=== PATIENT | male | born 1985 | race African-American/Black ===

== ENCOUNTER 2016-09-04 14:45 | Emergency (ER) | payer SELFPAY ==
[~2016-09-04] VITALS: Ht 185.4 cm; Wt 75.0 kg
[~2016-09-04 14:45] MED LIST: CLOTCRE17 TOP; METH750T2 PO; NAPR500 PO
[2016-09-04 14:46] VITALS: BP 182/109; PULSE 87; RESP 14; TEMP 98.4; O2SAT 97
--- NOTE | 2016-09-04 15:01 | PD ---
HPI Chief Complaint: Chest Pain Time Seen by Provider: 15:01 Travel History International Travel<30 days: No Contact w/Intl Traveler<30days: No Traveled to known affect area: No History of Present Illness HPI Patient is a 30-year-old male presented to the emergency department for evaluation of chest pain and mid upper right back pain that started this morning. Patient states he woke up with the pain, it did not wake him up. He reports it hurts to take a deep breath. He reports his pain as a 10 out of 10. He denies any significant past medical history, recent injury or trauma, falls. He further denies any nausea, diaphoresis, headache, abdominal pain. He does endorse tobacco use as well as marijuana use, and occasional alcohol use. PFSH Past Medical History Medical History: Denies Significant Hx Diminished Hearing: No Pancreatitis: Yes (HX OF) Social History Alcohol Use: Yes (OCC) Tobacco Use: Yes (1 PPD) Substance Use: Yes (SMOKES MARIJUANA) Allergies-Medications (Allergen,Severity, Reaction): Coded Allergies: No Known Allergies (Verified , 09/04/16) Reported Meds & Prescriptions Reported Meds & Active Scripts Active Robaxin (Methocarbamol) 750 Mg Tab 750 Mg PO Q8HR Clotrimazole Anti-Fungal (Clotrimazole) Cre 1 Applic TOP Q12HR 10 Days APLLY TO: Naprosyn (Naproxen) 500 Mg Tab 500 Mg PO Q12 Review of Systems Except as stated in HPI: all other systems reviewed are Neg Cardiovascular: Positive: Chest Pain or Discomfort, No: Tachycardia, Diaphoresis Respiratory: Positive: Pleuritic Pain, No: Shortness of Breath Gastrointestinal: No: Nausea, Vomiting, Abdominal Pain Musculoskeletal: Positive: Myalgias, Pain Physical Exam Narrative GENERAL: Thin, well-developed, alert gentleman. Appears uncomfortable, in no acute distress. SKIN: Warm and dry. HEAD: Atraumatic. Normocephalic. EYES: Pupils equal and round. No scleral icterus. No injection or drainage. ENT: No nasal bleeding or discharge. Mucous membranes pink and moist. NECK: Trachea midline. No JVD. CARDIOVASCULAR: Regular rate and rhythm. No murmur appreciated. RESPIRATORY: No accessory muscle use. Clear to auscultation. Breath sounds equal bilaterally. GASTROINTESTINAL: Abdomen soft, non-tender, nondistended. Hepatic and splenic margins not palpable. MUSCULOSKELETAL: No obvious deformities. No clubbing. No cyanosis. No edema. Chest pain and back pain is not reproducible on palpation. NEUROLOGICAL: Awake and alert. No obvious cranial nerve deficits. Motor grossly within normal limits. Normal speech. PSYCHIATRIC: Appropriate mood and affect; insight and judgment normal. Data Data Last Documented VS Vital Signs Date Time Temp Pulse Resp B/P Pulse Ox O2 Delivery O2 Flow Rate FiO2 09/04/16 14:46 98.4 87 14 182/109 97 Room Air Orders Electrocardiogram (09/04/16 14:58) Ckmb (Isoenzyme) Profile (09/04/16 14:58) Complete Blood Count With Diff (09/04/16 14:58) Comprehensive Metabolic Panel (09/04/16 14:58) D-Dimer (09/04/16 14:58) Magnesium (Mg) (09/04/16 14:58) Prothrombin Time / Inr (Pt) (09/04/16 14:58) Act Partial Throm Time (Ptt) (09/04/16 14:58) Troponin I (09/04/16 14:58) Chest, Single Ap (09/04/16 14:58) MDM Medical Decision Making Medical Screen Exam Complete: Yes Emergency Medical Condition: Yes Interpretation(s) Vital Signs Date Time Temp Pulse Resp B/P Pulse Ox O2 Delivery O2 Flow Rate FiO2 09/04/16 14:46 98.4 87 14 182/109 97 Room Air Differential Diagnosis Pulmonary embolism versus pneumothorax versus muscle spasm versus discogenic pain versus other Narrative Course Patient is a 30-year-old male presenting to the emergency department for evaluation of back and chest pain that started this morning. Patient is mildly hypertensive, this could be secondary to pain. Labs, EKG, chest x-ray ordered and pending. Discussed with call center agent to have a placed in a medical bed as soon as possible for further evaluation and management. Care of patient transferred to provider in medical pod. Nicole Sun Sep 04, 2016 15:01
--- NOTE | 2016-09-04 15:13 | PD ---
Physical Exam Date Seen by Provider: Sep 04, 2016 Time Seen by Provider: 15:13 Narrative Please refer to previous provider note. Patient was signed out to me for further care. 30-year-old male with no syncopal medical history here with complaints of right sided chest pain that is radiating to the back. Patient says it started all of a sudden this morning around 8:30 AM. He says he was sleeping and all of a sudden he developed some pain sharp in nature radiating to his right shoulder blade. Patient says he had something similar in the past and was seen in the emergency department and [facility]. He says he was told at that point he had some inflammation was given anti-inflammatories. He does admit that he had some heavy drinking over the weekend. He also admits to marijuana usage. At the time of examination patient denies any abdominal pain, nausea, vomiting, shortness of breath, or diaphoresis. GENERAL: AAO x 3, no acute distress, but becomes uncomfortable with movement, Well-nourished, well-developed patient. SKIN: Warm and dry. No visible rashes or bruising. HEAD: Normocephalic and atraumatic. EYES: No scleral icterus. No injection or drainage. ENT: No nasal drainage noted. Airway patent. NECK: Supple, trachea midline. No JVD. CARDIOVASCULAR: Regular rate and rhythm without murmurs, gallops, or rubs. Non- reproducible chest pain. RESPIRATORY: Breath sounds equal bilaterally. No accessory muscle use. No rhonchi or rales. GASTROINTESTINAL: Abdomen soft, non-tender, nondistended. EXTREMITIES: No cyanosis or edema. BACK: Nontender without obvious deformity. No CVA tenderness. PSYCH: AAO x 3, normal affect. Data Data Last Documented VS Vital Signs Date Time Temp Pulse Resp B/P Pulse Ox O2 Delivery O2 Flow Rate FiO2 09/04/16 16:31 97.8 78 18 150/81 99 09/04/16 15:28 Room Air Orders Electrocardiogram (09/04/16 14:58) Ckmb (Isoenzyme) Profile (09/04/16 14:58) Complete Blood Count With Diff (09/04/16 14:58) Comprehensive Metabolic Panel (09/04/16 14:58) D-Dimer (09/04/16 14:58) Magnesium (Mg) (09/04/16 14:58) Prothrombin Time / Inr (Pt) (09/04/16 14:58) Act Partial Throm Time (Ptt) (09/04/16 14:58) Troponin I (09/04/16 14:58) Chest, Single Ap (09/04/16 14:58) Lipase (09/04/16 15:22) CKMB (09/04/16 15:00) CKMB% (09/04/16 15:00) Tramadol (Ultram) (09/04/16 16:15) Labs Laboratory Tests Test 09/04/16 15:00 White Blood Count 4.9 TH/MM3 Red Blood Count 5.42 MIL/MM3 Hemoglobin 17.0 GM/DL Hematocrit 49.3 % Mean Corpuscular Volume 90.9 FL Mean Corpuscular Hemoglobin 31.3 PG Mean Corpuscular Hemoglobin 34.4 % Concent Red Cell Distribution Width 12.9 % Platelet Count 203 TH/MM3 Mean Platelet Volume 9.5 FL Neutrophils (%) (Auto) 41.8 % Lymphocytes (%) (Auto) 42.4 % Monocytes (%) (Auto) 11.7 % Eosinophils (%) (Auto) 2.4 % Basophils (%) (Auto) 1.7 % Neutrophils # (Auto) 2.0 TH/MM3 Lymphocytes # (Auto) 2.1 TH/MM3 Monocytes # (Auto) 0.6 TH/MM3 Eosinophils # (Auto) 0.1 TH/MM3 Basophils # (Auto) 0.1 TH/MM3 CBC Comment DIFF FINAL Differential Comment Prothrombin Time 10.8 SEC Prothromb Time International 1.0 RATIO Ratio Activated Partial 26.7 SEC Thromboplast Time D-Dimer Quantitative (PE/DVT) LESS THAN 0.19 MG/L FEU Sodium Level 137 MEQ/L Potassium Level 4.1 MEQ/L Chloride Level 104 MEQ/L Carbon Dioxide Level 26.0 MEQ/L Anion Gap 7 MEQ/L Blood Urea Nitrogen 8 MG/DL Creatinine 1.06 MG/DL Estimat Glomerular Filtration 99 ML/MIN Rate Random Glucose 93 MG/DL Calcium Level 9.4 MG/DL Magnesium Level 2.1 MG/DL Total Bilirubin 0.8 MG/DL Aspartate Amino Transf 17 U/L (AST/SGOT) Alanine Aminotransferase 30 U/L (ALT/SGPT) Alkaline Phosphatase 73 U/L Total Creatine Kinase 173 U/L Creatine Kinase MB 0.7 NG/ML Troponin I LESS THAN 0.02 NG/ML Total Protein 8.0 GM/DL Albumin 4.7 GM/DL Lipase 164 U/L [facility] Medical Record Reviewed: Yes Supervised Visit with DUANE: No Differential Diagnosis R/O ACS, pancreatitis, muscle strain, muscle spasm, Narrative Course 30-year-old male with no syncopal medical history here with complaints of right sided chest pain that is radiating to the back. Patient says it started all of a sudden this morning around 8:30 AM. He says he was sleeping and all of a sudden he developed some pain sharp in nature radiating to his right shoulder blade. Patient says he had something similar in the past and was seen in the emergency department and [facility]. He says he was told at that point he had some inflammation was given anti-inflammatories. He does admit that he had some heavy drinking over the weekend. He also admits to marijuana usage. At the time of examination patient denies any abdominal pain, nausea, vomiting, shortness of breath, or diaphoresis. GENERAL: AAO x 3, no acute distress, but becomes uncomfortable with movement, Well-nourished, well-developed patient. SKIN: Warm and dry. No visible rashes or bruising. HEAD: Normocephalic and atraumatic. EYES: No scleral icterus. No injection or drainage. ENT: No nasal drainage noted. Airway patent. NECK: Supple, trachea midline. No JVD. CARDIOVASCULAR: Regular rate and rhythm without murmurs, gallops, or rubs. Non- reproducible chest pain. RESPIRATORY: Breath sounds equal bilaterally. No accessory muscle use. No rhonchi or rales. GASTROINTESTINAL: Abdomen soft, non-tender, nondistended. EXTREMITIES: No cyanosis or edema. BACK: Nontender without obvious deformity. No CVA tenderness. PSYCH: AAO x 3, normal affect. Patient seen and examined. Discussed case with Dr. Perez. Labs ordered. CBC/BMP/Lipase/CE unremarkable. CXR normal EKG, fairly unremarkable except for early repolarization. Tramadol in ED for pain. I discussed the findings with him and provided him with an anti-inflammatory muscle relaxer. Patient verbalized understanding of instructions, questions were answered, and thanked me for their care. I advised them if their condition worsens, please return to the nearest emergency room for further care. Diagnosis Primary Impression: Muscle strain Additional Impression: Muscle spasm Patient Instructions: General Instructions Additional Instruction: Please follow up with your primary care provider. Take medications as prescribed. Return to the ED if your symptoms return or worsen. Med/Other Pt SpecificInfo: Prescription(s) given Scripts Cyclobenzaprine (Flexeril)5 Mg Tab5 Mg PO BID #20 TAB Ref 0 Prov:Maritza Buchanan 09/04/16 Ibuprofen 800 Mg [id number] Mg PO TID #30 TAB Ref 0 Prov:Maritza Buchanan 09/04/16 Disposition: 01 DISCHARGE HOME Condition: Stable Maritza Buchanan Sep 04, 2016 15:13
[2016-09-04 15:28] VITALS: BP 172/93; PULSE 82; RESP 17; O2SAT 100
[2016-09-04 15:36] LABS: BASOPHIL # 0.1 TH/MM3 (0-0.2); BASOPHIL % 1.7 % (0.0-2.0); EOSINOPHIL # 0.1 TH/MM3 (0-0.4); EOSINOPHIL % 2.4 % (0.0-4.0); HEMATOCRIT 49.3 % (39.0-51.0); HEMO FLAGS DIFF FINAL; LYMPH % 42.4 % (9.0-44.0); LYMPHOCYTE # 2.1 TH/MM3 (1.0-4.8); MEAN CELL VOLUME 90.9 FL (80.0-100.0); MEAN CORPUSCULAR HEMOGLOBIN 31.3 PG (27.0-34.0); MEAN CORPUSCULAR HGB CONC 34.4 % (32.0-36.0); MONO % 11.7 % (0.0-8.0); NEUT % 41.8 % (16.0-70.0); PLATELET COUNT 203 TH/MM3 (150-450); RED BLOOD COUNT 5.42 MIL/MM3 (4.50-5.90); RED CELL DISTRIBUTION WIDTH 12.9 % (11.6-17.2); WHITE BLOOD COUNT 4.9 TH/MM3 (4.0-11.0)
--- NOTE | 2016-09-04 15:39 | RADRPT ---
EXAM DATE/TIME: 09/04/2016 15:14 [facility] COMPARISON: CHEST SINGLE AP, November 02, 2013, 12:40. INDICATIONS : Pain in right anterior chest today, short of breath MEDICAL HISTORY : None. SURGICAL HISTORY : None. ENCOUNTER: Initial ACUITY: 1 day PAIN SCORE: 9/10 LOCATION: Right chest FINDINGS: A single view of the chest demonstrates the lungs to be symmetrically aerated without evidence of mas s, infiltrate or effusion. The cardiomediastinal contours are unremarkable. Osseous structures are intact. CONCLUSION: 1. Negative examination. Harvey White MD on September 04, 2016 at 15:34 Board Certified Radiologist. This report was verified electronically.
[2016-09-04 15:59] LABS: APTT (PATIENT) 26.7 SEC (24.3-30.1); PROTHROMBIN TIME - PATIENT 10.8 SEC (9.8-11.6)
[2016-09-04 16:03] LABS: ALKALINE PHOSPHATASE 73 U/L (45-117); CREATINE KINASE 173 U/L (39-308); TOTAL BILIRUBIN ADULT 0.8 MG/DL (0.2-1.0)
[2016-09-04 16:05] LABS: ALT (GPT) 30 U/L (12-78); ANION GAP 7 MEQ/L (5-15); AST (GOT) 17 U/L (15-37); BLOOD UREA NITROGEN 8 MG/DL (7-18); CHLORIDE 104 MEQ/L (98-107); GLOMERULAR FILTRATION RATE 99 ML/MIN (>89); MAGNESIUM 2.1 MG/DL (1.5-2.5); POTASSIUM 4.1 MEQ/L (3.5-5.1); SODIUM (NA) 137 MEQ/L (136-145)
[2016-09-04] MEDS ORDERED: IBUP800T23 PO (16:08)
[2016-09-04] MEDS ORDERED: CYCL5TAB PO (16:08)
--- NOTE | 2016-09-04 16:10 | PD ---
Data Data Last Documented VS Vital Signs Date Time Temp Pulse Resp B/P Pulse Ox O2 Delivery O2 Flow Rate FiO2 09/04/16 15:28 82 17 172/93 100 Room Air 09/04/16 14:46 98.4 Orders Electrocardiogram (09/04/16 14:58) Ckmb (Isoenzyme) Profile (09/04/16 14:58) Complete Blood Count With Diff (09/04/16 14:58) Comprehensive Metabolic Panel (09/04/16 14:58) D-Dimer (09/04/16 14:58) Magnesium (Mg) (09/04/16 14:58) Prothrombin Time / Inr (Pt) (09/04/16 14:58) Act Partial Throm Time (Ptt) (09/04/16 14:58) Troponin I (09/04/16 14:58) Chest, Single Ap (09/04/16 14:58) Lipase (09/04/16 15:22) CKMB (09/04/16 15:00) CKMB% (09/04/16 15:00) Labs Laboratory Tests Test 09/04/16 15:00 White Blood Count 4.9 TH/MM3 Red Blood Count 5.42 MIL/MM3 Hemoglobin 17.0 GM/DL Hematocrit 49.3 % Mean Corpuscular Volume 90.9 FL Mean Corpuscular Hemoglobin 31.3 PG Mean Corpuscular Hemoglobin 34.4 % Concent Red Cell Distribution Width 12.9 % Platelet Count 203 TH/MM3 Mean Platelet Volume 9.5 FL Neutrophils (%) (Auto) 41.8 % Lymphocytes (%) (Auto) 42.4 % Monocytes (%) (Auto) 11.7 % Eosinophils (%) (Auto) 2.4 % Basophils (%) (Auto) 1.7 % Neutrophils # (Auto) 2.0 TH/MM3 Lymphocytes # (Auto) 2.1 TH/MM3 Monocytes # (Auto) 0.6 TH/MM3 Eosinophils # (Auto) 0.1 TH/MM3 Basophils # (Auto) 0.1 TH/MM3 CBC Comment DIFF FINAL Differential Comment Prothrombin Time 10.8 SEC Prothromb Time International 1.0 RATIO Ratio Activated Partial 26.7 SEC Thromboplast Time D-Dimer Quantitative (PE/DVT) LESS THAN 0.19 MG/L FEU Sodium Level 137 MEQ/L Potassium Level 4.1 MEQ/L Chloride Level 104 MEQ/L Carbon Dioxide Level 26.0 MEQ/L Anion Gap 7 MEQ/L Blood Urea Nitrogen 8 MG/DL Creatinine 1.06 MG/DL Estimat Glomerular Filtration 99 ML/MIN Rate Random Glucose 93 MG/DL Calcium Level 9.4 MG/DL Magnesium Level 2.1 MG/DL Total Bilirubin 0.8 MG/DL Aspartate Amino Transf 17 U/L (AST/SGOT) Alanine Aminotransferase 30 U/L (ALT/SGPT) Alkaline Phosphatase 73 U/L Total Creatine Kinase 173 U/L Troponin I LESS THAN 0.02 NG/ML Total Protein 8.0 GM/DL Albumin 4.7 GM/DL Lipase 164 U/L MDM Supervised Visit with DUANE: Yes Narrative Course I, Dr. Perez, have reviewed the advance practice practioner's documentation and am in agreement, met with the patient face to face, made the diagnosis, and the medical decision making was done by me. *My assessment and Findings: 30-year-old healthy male here with pleuritic right chest pain radiating to the back worse with deep inspiration, movement. Pain began after heavy alcohol use but denies any nausea vomiting or abdominal pain. Reproducible low right sided chest wall pain on exam. Regular rate and rhythm. Differential includes musculoskeletal, PE, gastritis, peptic ulcer disease, pancreatitis or hepatobiliary pathology and less likely ACS. EKG, laboratory workup unremarkable. We'll treat for musculoskeletal etiology, chest wall pain and discharged home. Diagnosis Primary Impression: Muscle strain Additional Impression: Muscle spasm Patient Instructions: General Instructions Scripts Cyclobenzaprine (Flexeril)5 Mg Tab5 Mg PO BID #20 TAB Ref 0 Prov:Maritza Buchanan 09/04/16 Ibuprofen 800 Mg [id number] Mg PO TID #30 TAB Ref 0 Prov:Maritza Buchanan 09/04/16 Disposition: 01 DISCHARGE HOME Condition: Stable Serina Perez MD Sep 04, 2016 16:10
[2016-09-04 16:15] LABS: CKMB 0.7 NG/ML (0.5-3.6)
[2016-09-04] MEDS ORDERED: traMADol HCL 50 MG TAB PO ONE (16:15)
[2016-09-04 16:31] VITALS: BP 150/81; TEMP 97.8
--- NOTE | 2016-09-05 09:25 | EKG ---
Date Performed: 09/04/2016 Time Performed: 15:07:01 PTAGE: 30 years EKG: Sinus rhythm ST ELEVATION, PROBABLY EARLY REPOLARIZATION BORDERLINE ECG PREVIOUS TRACING : 09/04/2016 15.05 Compared to prior tracing no significant change DOCTOR: Fredis Celis Interpretating Date/Time 09/06/2016 06:57:30
== END 2016-09-04 16:25 | disposition home or self-care (01) ==
LOC: NEPE 14:45
DX: M62.838 Other muscle spasm (principal); T14.8 Other injury of unspecified body region; F17.210 Nicotine dependence, cigarettes, uncomplicated; R07.9 Chest pain, unspecified; R94.31 Abnormal electrocardiogram [ECG] [EKG]; R03.0 Elevated blood-pressure reading, without diagnosis of hypertension
CPT/HCPCS: 71010; 80053; 82550; 82552; 83690; 83735; 84484; 85025; 85379; 85610; 85730; 93005